=== PATIENT | male | born 1985 | race Caucasian/White ===

== ENCOUNTER 2020-11-19 13:58 | Emergency (ER) | payer SELFPAY ==
[2020-11-19 14:56] VITALS: BP 132/79; PULSE 94; RESP 16; TEMP 36.5; O2SAT 99; BMI 24.0
[2020-11-19 16:15] VITALS: BP 121/76; PULSE 87; RESP 16; O2SAT 98
--- NOTE | 2020-11-19 16:34 | ED_ITS ---
HPI - Skin/Abscess/Foreign Bdy General: Chief complaint: Skin/Abscess/Foreign Body Stated complaint: PT states possible staff on stomach Time Seen by Provider: 11/19/20 16:11 History of Present Illness: HPI narrative: Patient is a 35-year-old male who comes to the ED with a rash and several sores on the lower abdomen and penis. Patient has 2 sores on his penis and one on his lower abdomen. Patient denies any history of STDs or recent sexual activity. Denies any dysuria, hematuria or penile discharge. Associated symptoms: Deny chills, fever(s), nausea or vomiting Review of Systems Const: Denies: fever(s), chills or fatigue Eyes: Denies: change in vision or eye discomfort ENMT: Denies: throat pain, odynophagia, nasal discharge or nasal congestion Card: Denies: chest pain, palpitations, edema, swelling of feet/ankles, dyspnea on exertion or orthopnea Resp: Denies: dyspnea, productive cough or non-productive cough GI: Denies: abdominal pain, nausea, vomiting, diarrhea, constipation or hematochezia : Denies: flank pain, difficulty urinating, dysuria or hematuria Musc: Denies: neck pain, back pain or extremity swelling Skin/Breast: Reports: new lesions (Patient has 2 sores on his penis and one on his lower abdomen.); Denies: rash Neuro: Denies: headache(s), numbness in extremities or weakness in extremities PFS ED PFSH: Social History Smoking and tobacco status: current every day smoker cigarettes Packs smoked per day: 0.25 Alcohol intake: former Substance/Drug Use: never Physical Exam Const: COMMON NORMALS: no acute distress, patient oriented x3 and alert HENMT: COMMON NORMALS: normocephalic HEAD & SCALP: normocephalic MOUTH: Normal oral and palatal mucosa present THROAT: posterior oropharynx normal and uvula midline Neck/C-Spine: COMMON NORMALS: supple GENERAL: Yes normal visual inspection Resp: COMMON NORMALS: normal respiratory effort, No retractions, No use of acc essory muscles and clear to auscultation bilaterally AUSCULTATION: clear to auscultation bilaterally Cardio: COMMON NORMALS: regular rate, regular rhythm, S1 normal heart sound present, S2 normal heart sound present, No gallops present (Cardio), No clicks present (Cardio), No murmurs present (Cardio) and Peripheral pulses 2+ throughout RATE: regular rate RHYTHM: regular rhythm HEART SOUNDS: S1 normal heart sound present and S2 normal heart sound present PERIPHERAL PULSES: Peripheral pulses 2+ throughout GI: COMMON NORMALS: Normal to inspection, nondistended, normoactive bowel sounds present, Soft to palpation, non-tender and no masses PALPATION: Yes Soft to palpation : COMMON NORMALS: Yes no CVA tenderness BLADDER/KIDNEY EXAM: Yes no CVA tenderness MALE GROIN/PERINEUM EXAM: Yes Genital lesions present male/groin perineum lesions: ulcer (2 painful ulcer on penis.) PENIS: Genital lesions present Back/Pelvis: COMMON NORMALS: no CVA tenderness Extremity: COMMON NORMALS: normal to inspection Neuro: COMMON NORMALS: patient oriented x3 and moves all extremities SENSORIUM/ORIENTATION: Yes alert Skin: NARRATIVE SKIN EXAM: Patient has a erythemic, warm and tender lesion on lower abdomen/pelvis. Findings suggestive of cellulitis. GENERAL SKIN EXAM: dry skin Course Vital Signs: Vital signs: Vital Signs Temperature 97.7 F 11/19/20 14:56 Pulse Rate 91 11/19/20 17:10 Respiratory Rate 16 11/19/20 17:10 Blood Pressure 123/79 11/19/20 17:10 Pulse Oximetry 97 11/19/20 17:10 MDM - Skin/Abscess/Foreign Bdy MDM Narrative: Medical decision making narrative: Patient is a 35-year-old male who comes to the ED with sores on penis and abdomen. Patient denies any history of STDs or recent sexual activity. Exam shows 2 painful ulcers on shaft of penis. Denies any dysuria, hematuria or penile discharge. Patient also has a lesion on his lower abdomen that appears to be cellulitis. Lesion on abdomen does not resemble the ulcers on patient's penis and they appear to be unrelated. UA was unremarkable. Gonorrhea and Chlamydia lab pending.. He was diagnosed with ulcers of genital organomegaly and cellulitis. He was given gonorrhea and chlamydia prophylactic treatment. Patient sent home with a prescription for cefixime, doxycycline and Bactrim. Return to ED precautions given. Told patient to contact the hospital to get lab results in the next 24 to 48 hours. Patient understood and agreed with plan. Lab Data: Labs: Lab Results 11/19/20 Range/Units 17:08 Urine Color Yellow (Yellow) Urine Appearance Clear (CLEAR) Urine pH 5 (5-7) Ur Specific Gravit y 1.025 (1.005-1.030) Urine Protein Neg (Negative) Urine Glucose (UA) Norm (Normal) Urine Ketones Negative (Negative) Urine Blood 2+ H (Negative) Urine Nitrate Negative (Negative) Urine Bilirubin Neg (Negative) Urine Urobilinogen Norm (Negative) mg/dL Ur Leukocyte Regina ase Negative (Negative) Urine RBC 0-4 H (0-2) /hpf Urine WBC None (0-5) /hpf Ur Squamous Epith Cells None (0-5) /hpf Amorphous Sediment Not Reportable Urine Bacteria Trace (NONE) /hpf Urine Mucus 1+ /hpf Discharge Plan Discharge Patient Disposition: Home Clinical Impression: Ulcers of genital organ in male Cellulitis Qualifiers: Site of cellulitis: trunk Site of cellulitis of trunk: abdominal wall Qualified Code(s): L03.311 - Cellulitis of abdominal wall Condition: Stable Prescriptions: New cefixime 400 mg capsule 800 mg PO ONCE Qty: 2 RF: 0 doxycycline hyclate 100 mg capsule 100 mg PO BID 7 Days Qty: 14 RF: 0 Bactrim DS 800-160 mg tablet 1 tab PO BID 5 Days Qty: 10 RF: 0 Discharge Orders: Discharge ED (Routine); Ordered 11/19/20 Ordered By: Sohan Fraire Discharge Diet: Regular Discharge Activity: Resume usual activity Patient Instructions: Sexually Transmitted Diseases (ED), Safe Sex (ED), Cellulitis (ED) Activity Restrictions/Additional Instructions: Follow-up with medical provider as directed in 7 to 10 days for reevaluation. Contact [facility] in 48 hours to get results of your tests. Take medications as prescribed. Before taking your single dose of cefixime, take 50 mg of Benadryl to prevent any possible allergic reaction. If you start developing allergic reaction return to the ED immediately. Return to the ER or your medical provider if condition worsens. Please read and understand discharge instructions. Thank you for choosing [facility] for your healthcare needs today. Please realize this is an emergency room and that we are providing you with a medical screening exam and this may not be complete and all inclusive of all the testing and or work up that you may need to determine your ailment or severity of your illness. It is very important that you follow up as instructed or that you return to the Emergency Department should you have concerns or if your condition changes or worsens in any way. Coding Level of Care Code ED Packing Room Supervisor for Janessa London Exam Comprehensive
[2020-11-19 17:10] VITALS: BP 123/79; PULSE 91; RESP 16; O2SAT 97
[2020-11-19 17:16] LABS: Bilirubin Urine Neg (Negative); Blood Urine 2+ (Negative); Glucose Urine UA Norm (Normal); Ketones Urine Negative (Negative); Nitrate Urine Negative (Negative); Protein Urine Neg (Negative); Specific Gravity, Urine 1.025 (1.005-1.030); Urine Appearance Clear (CLEAR); Urine Color Yellow (Yellow); Urobilinogen Urine Norm (Negative); pH Urine 5 (5-7)
[2020-11-19 17:17] LABS: Leukocyte Esterase Urine Negative (Negative)
[2020-11-19 17:26] LABS: Add Urine Culture? No; Bacteria Urine TRACE /hpf; Mucus Urine 1+ /hpf; RBC Urine 0-4 /hpf (0-2)
== END 2020-11-19 17:10 | disposition home or self-care (01) ==
PROVIDERS: Emergency Provider Physician Assistant
DX: L03.311 Cellulitis of abdominal wall (principal); L98.499 Non-pressure chronic ulcer of skin of other sites with unspecified severity; F17.210 Nicotine dependence, cigarettes, uncomplicated
CPT/HCPCS: 81001; 87491; 87591; 99282